=== PATIENT | female | born 1950 | race Caucasian/White ===

== ENCOUNTER 2017-11-09 11:39 | Day surgery (SDC) | payer MEDICARE ==
[~2017-11-09] VITALS: Ht 162.6 cm; Wt 70.5 kg
[2017-11-09 11:48] VITALS: BP 111/69
[2017-11-09] MEDS ORDERED: ESTR-4 PO (11:56)
[2017-11-09] MEDS ORDERED: LIDOcaine Viscous 15ml cup ONE (12:30)
[2017-11-09] MEDS ORDERED: MIDAZolam 5mg/5ml vial ONE (12:30)
[2017-11-09] MEDS ORDERED: fentaNYL/PF 50MCG/1 ML 2ML syringe ONE (12:30)
[2017-11-09 13:29] VITALS: BP 112/71
[2017-11-09 13:39] VITALS: BP 115/66
[2017-11-09 13:49] VITALS: BP 112/73
[2017-11-09 13:59] VITALS: BP 131/75
== END 2017-11-09 14:12 | disposition home or self-care (01) ==
LOC: GI LAB 11:39
PROVIDERS: ATTEND Internal Medicine Gastroenterology
DX: K29.50 Unspecified chronic gastritis without bleeding (principal); K20.9 Esophagitis, unspecified; K22.8 Other specified diseases of esophagus; Z86.19 Personal history of other infectious and parasitic diseases; Z90.89 Acquired absence of other organs; Z72.89 Other problems related to lifestyle; Z98.890 Other specified postprocedural states; Z79.899 Other long term (current) drug therapy
CPT/HCPCS: 43239; G0500; J2250; J3010; J7030; A4620